=== PATIENT | male | born 1940 | race Caucasian/White ===

== ENCOUNTER → 2017-02-17 | Outpatient (CLI) | payer MEDICARE, OTHER ==
--- NOTE | ~2017-02-17 | CR63 ---
[facility] A Service of [facility] & [facility] RADIOLOGY TEXT RESULTS PATIENT: LIAT ALVAREZ LOCATION: [facility] : 44 UNIT #: [id number] AGE: [address]: Vickey Venegas MD SEX: M ORDER DR: [id number] [facility] [address] [place], [place] [address] [id number] O MR#: [id number] Acc #: [id number] NAME: LIAT ALVAREZ : 1940 SEX: M STUDY DATE/TIME: 02/17/2017 8:33 UNIT: [facility] ROOM: STUDY DESCRIPTION: CR Chest 2 View Attending Physician: Vickey Venegas M.D. Referring Physician: Vickey Venegas M.D. Ordering Physician: Vickey Venegas M.D. Primary Care Physician: Primary Care Physician No MEDICAL IMAGING REPORT This report is preliminary unless electronic signature is present EXAM PA and lateral chest, 02/17/2017 COMPARISON 04/21/2017 HISTORY Preop removal of right ganglion cyst. FINDINGS PA and lateral views are obtained. The heart size is within normal limits. The patient does have a pectus excavatum deformity. 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 Lungs are expanded in the chest wall. They are clear compared with prior chest radiographs of April 2016 and there has been no change. CONCLUSION No active disease. Dictated by... Lavon Cooper M.D. THIS IS AN ELECTRONICALLY VERIFIED REPORT Lavon Cooper M.D. at 02/17/2017 4:50 PM Jose Antonio TD: 02/17/2017 10:19 JOB #: [id number] MEDICAL IMAGING REPORT Page 1 of 1 COPY
--- NOTE | ~2017-02-17 | EKG ---
PATIENT: LIAT ALVAREZ UNIT #: [id number] Ventricular Rate: 60 BPM Atrial Rate: 60 BPM P-R Interval: 176 ms QRS Duration: 100 ms Q-T Interval: 418 ms QTC Calculation(Bezet): 418 ms P [place]: 71 degrees Calculated R [place]: 35 degrees Calculated T [place]: 33 degrees Diagnosis Line: Normal sinus rhythm Diagnosis Line: Possible Left atrial enlargement Diagnosis Line: Borderline ECG Diagnosis Line: When compared with ECG of 21-APR-2016 15:18, Diagnosis Line: No significant change was found Diagnosis Line: Confirmed by BREANNA DONALDSON MD ([id number]) on Diagnosis Line: 02/17/2017 3:21:11 PM INTERPRETING MD: MENDOZA PEACOCK
[2017-02-17 08:36] LABS: URINE APPEARANCE CLEAR; URINE BILIRUBIN NEG (NEG); URINE BLOOD NEG (NEG); URINE COLOR YELLOW; URINE GLUCOSE NEG (NEG); URINE KETONE TRACE (NEG); URINE LEUKOCYTE ESTERASE NEG (NEG); URINE NITRATE NEG (NEG); URINE PH 6.5 (5-8); URINE PROTEIN NEG (NEG); URINE SPECIFIC GRAVITY 1.017 (1.003-1.035)
[2017-02-17 08:40] LABS: HEMATOCRIT 50.5 % (38.0-50.0); HEMOGLOBIN 17.3 gm/dL (13.0-16.0); MEAN CELL VOLUME 89.1 FL (83-96); MEAN CORPUSCULAR HEMOGLOBIN 30.5 PG (28-34); MEAN CORPUSCULAR HGB CONC 34.2 g/dL (30-36); MEAN PLATELET VOLUME 7.9 FL (6.5-11.5); RED BLOOD COUNT 5.66 X10e (3.90-5.60); RED CELL DISTRIBUTION WIDTH 13.2 % (11.0-15.5); WHITE BLOOD COUNT 6.8 X10e3 (4.0-10.5)
[2017-02-17 08:42] LABS: CULTURE INDICATED? NO; URINE SOURCE CLEAN CATCH
[2017-02-17 08:58] LABS: CALCIUM SERUM 9.2 mg/dL (8.4-10.2); CREATININE SERUM 1.3 mg/dL (0.6-1.4); GLOM FILT RATE Estimated 53.8 mL/min (>60); POTASSIUM 4.2 mmol/L (3.5-5.1)
== END | disposition home or self-care (01) ==
LOC: CLAB 07:53
PROVIDERS: Orthopaedic Surgery
DX: Z01.818 Encounter for other preprocedural examination (principal); M67.421 Ganglion, right elbow
CPT/HCPCS: 36415; 71020; 80048; 81003; 85027; 93005

== ENCOUNTER → 2017-04-17 | Outpatient (CLI) | payer MEDICARE, OTHER ==
[2017-04-17 13:32] LABS: HEMATOCRIT 46.8 % (38.0-50.0); MEAN CELL VOLUME 89.9 FL (83-96); MEAN CORPUSCULAR HEMOGLOBIN 30.8 PG (28-34); MEAN CORPUSCULAR HGB CONC 34.3 g/dL (30-36); MEAN PLATELET VOLUME 7.8 FL (6.5-11.5); RED BLOOD COUNT 5.2 X10e (3.90-5.60); RED CELL DISTRIBUTION WIDTH 13.5 % (11.0-15.5); WHITE BLOOD COUNT 7.6 X10e3 (4.0-10.5)
[2017-04-17 13:35] LABS: URINE APPEARANCE CLEAR; URINE BILIRUBIN NEG (NEG); URINE BLOOD NEG (NEG); URINE COLOR YELLOW; URINE GLUCOSE NEG (NEG); URINE KETONE NEG (NEG); URINE LEUKOCYTE ESTERASE NEG (NEG); URINE NITRATE NEG (NEG); URINE PROTEIN NEG (NEG); URINE SPECIFIC GRAVITY 1.012 (1.003-1.035); URINE UROBILINOGEN 0.2 MG/DL (NEG)
[2017-04-17 13:40] LABS: CULTURE INDICATED? NO; URINE SOURCE CLEAN CATCH
[2017-04-17 13:51] LABS: BUN/CREATININE RATIO 13.33; CALCIUM SERUM 9.1 mg/dL (8.4-10.2); CREATININE SERUM 1.2 mg/dL (0.6-1.4); GLOM FILT RATE Estimated 59.2 mL/min (>60); POTASSIUM 3.9 mmol/L (3.5-5.1)
== END | disposition home or self-care (01) ==
LOC: CLAB 13:08
PROVIDERS: Orthopaedic Surgery
DX: M67.421 Ganglion, right elbow (principal)
CPT/HCPCS: 36415; 80048; 81003; 85027